=== PATIENT | female | born 1990 | race Caucasian/White ===

== ENCOUNTER 2017-08-16 22:05 | Inpatient (IN) | payer OTHER ==
[2017-08-16] MEDS ORDERED: Penicillin G Potassium IV* 5,000,000 UNITS in NS 0.9% 100 ML* 100 ML IVPB ONE (22:33)
[2017-08-16 23:10] LABS: ABS Basophils 0.1 10^3/ul (0-0.2); ABS Eosinophils 0.1 10^3/ul (0-0.6); ABS Lymphocytes 2.5 10^3/ul (1.0-4.8); ABS Monocytes 0.8 10^3/ul (0-0.8); ABS Neutrophils 10.7 10^3/ul (1.5-7.7); ABS Nucleated RBC 0 10^3/ul; Eosinophil % 0.6 % (0-6); Hematocrit 37 % (35-47); Hemoglobin 12.9 g/dl (12.0-16.0); Lymphocyte % 17.6 % (25-47); Mean Corpuscular HGB Conc 35 g/dl (31-36); Mean Corpuscular Hemoglobin 32 pg (27-31); Mean Corpuscular Volume 92 fL (80-97); Mean Platelet Volume 8 um3 (7.4-10.4); Nucleated Red Blood Cells % 0; Platelet Count 217 10^3/ul (150-450); Red Blood Count 4.03 10^6/ul (4.0-5.4); Red Cell Distribution Width 13 % (10.5-15); White Blood Count 14.2 10^3/ul (3.5-10.8)
--- NOTE | 2017-08-16 23:51 | HP ---
General Information - General Information Maternal Age: 27 Grav: 1 Para: 0 SAB: 0 IEA: 0 Estimated Due Date: 08/14/17 Determined By: LMP Gestational Age in Weeks and Days: 40 Weeks and 2 Days Maternal Blood Type and Rh: A Positive - Results this Serology/RPR Result: Non-Reactive Rubella Result: Immune HBsAg Result: Negative HIV Result: Negative GBS Culture Result: Positive Past Medical History Delivery History: See Records Pertinent Past Medical History: See Records Past Medical History Comment: Hx asthma, atopic dermatitis, migraine Pertinent Past Surgical History: None Pertinent Family History: See Records Family History Comment: Pancreatic and breast cancer, dementia - Antepartal Records Antepartal Records: Reviewed, Uncomplicated Review of Systems Constitutional: Uncomfortable CV Complaint: No Respiratory: Shortness of Breath: No Gastrointestinal: No Nausea/Vomiting - + Nausea and vomiting in labor. Little PO intake today Genitourinary: No Dysuria, No Bleeding, No Leaking Fluid Musculoskeletal: Contractions Neurological: No Headache, No Visual Changes Movement: Normal Exam Allergies/Adverse Reactions: Allergies No Known Allergies Allergy (Verified 08/16/17 23:42) BP 134/98 HR 62 RR 18 T97 Lab Values - Entire Visit: Laboratory Tests 08/16/17 08/16/17 22:56 22:56 WBC 14.2 H RBC 4.03 Hgb 12.9 Hct 37 MCV 92 MCH 32 H MCHC 35 RDW 13 Plt Count 217 MPV 8 Neut % (Auto) 75.1 Lymph % (Auto) 17.6 L [place] % (Auto) 5.7 Eos % (Auto) 0.6 Baso % (Auto) 1.0 Absolute Neuts (auto) 10.7 H Absolute Lymphs (auto) 2.5 Absolute Monos (auto) 0.8 Absolute Eos (auto) 0.1 Absolute Basos (auto) 0.1 Absolute Nucleated RBC 0 Nucleated RBC % 0 Blood Type A Positive - Measurements Height: 5 ft 4 in Weight: 158 lb Weight in lbs: 158 Body Mass Index (BMI): 27.1 Pre- Weight: 122 lb Weight Gained This : 36 lbs and 0 ozs - Exam Abdomen: No Upper Quadrant Pain Breast: Breast Exam Deferred CVA: No CVA Tenderness Extremities: No Edema Heart: Normal Rhythm/Heart Sounds HEENT: No Significant Findings Lungs: Clear Bilaterally Rectal: Rectal Exam Deferred Reflexes: DTR 2+ Thyroid: No Thyromegaly - Cervical Exam 3-4cm/70%/vtx -1 - Abdominal Exam Abdomen Exam: Non-Tender, Fundal Height Consistent with Dates - Membranes Membrane Status: Intact - Ultrasound/Biophysical Profile Ultrasound Status: Not Done EFM Findings - External Monitor Findings Baseline Heart Rate: 130 External Monitor Findings: Accelerations Present, No Pattern of Variable or Late Decelerations, Variability Moderate, Baseline Stable External Monitor Findings Comment: No evidence of metabolic acidemia Contractions: Regular, Moderate, 45-90 Seconds Contraction Frequency: q 2-3 min Assessment/Plan - Reason for Visit Reason for Visit: IUP at 40-3/7 in labor GBS positive Elevated BP of unknown significance - Obstetrical Risk Factors Obstetrical Risk Factors: GBS Positive - Plan Plan: Active Labor, IV Hydration - Plan BP labs. Pt request labor epidural for pain mgmt
[2017-08-17] MEDS ORDERED: OBEPIDURAL* 250 ML EPIDURAL ONE (00:10)
[2017-08-17 00:29] LABS: Urine Appearance Cloudy; Urine Blood 3+ (Negative); Urine Color Yellow; Urine Ketones Negative (Negative); Urine Protein Negative (Negative); Urine Specific Gravity 1.033 (1.010-1.030); Urine Urobilinogen Negative (Negative)
[2017-08-17 00:36] LABS: EGFR Non-African American 122.9 (>60); Uric Acid 3.7 mg/dL (2.3-6.6)
[2017-08-17] MEDS ORDERED: Phenylephrine IV* 40 MCG/ML 10 ML SYRINGE IV PUSH PRN ×2 (00:41)
[2017-08-17] MEDS ORDERED: Sodium Citrate/Citric Acid* 15 ML UDC PO PRN (00:41)
[2017-08-17] MEDS ORDERED: OBEPIDURAL* 250 ML EPIDURAL SCH (01:00)
[2017-08-17] MEDS: Penicillin G Potassium IV* 2,500,000 UNITS in NS 0.9% 100 ML* 100 ML IVPB SCH ×2 (03:10→07:02)
[2017-08-17] MEDS ORDERED: Witch Hazel PAD* JAR TOPICAL PRN (09:47)
[2017-08-17] MEDS ORDERED: Acetaminophen TAB* 325 MG PO PRN (09:47)
[2017-08-17] MEDS ORDERED: Dibucaine 1% 28.35 GM TUBE PR PRN (09:47)
[2017-08-17] MEDS ORDERED: Lidocaine 1% MPF* 2 ML VIAL ONE (10:25)
[2017-08-17] MEDS: Ibuprofen TAB* 600 MG PO PRN ×2 (12:41→19:49)
[2017-08-17] MEDS: Docusate CAP* 100 MG PO SCH ×2 (14:00→19:49)
[2017-08-18] MEDS: Ibuprofen TAB* 600 MG PO PRN ×3 (05:49→19:19)
[2017-08-18 07:08] LABS: Hematocrit 28 % (35-47); Hemoglobin 9.7 g/dl (12.0-16.0); Mean Corpuscular HGB Conc 35 g/dl (31-36); Mean Corpuscular Hemoglobin 33 pg (27-31); Mean Corpuscular Volume 93 fL (80-97); Mean Platelet Volume 8 um3 (7.4-10.4); Platelet Count 152 10^3/ul (150-450); Red Blood Count 2.99 10^6/ul (4.0-5.4); Red Cell Distribution Width 13 % (10.5-15); White Blood Count 12.8 10^3/ul (3.5-10.8)
[2017-08-18] MEDS: Ferrous Gluconate TAB* 324 MG TAB PO SCH ×2 (08:55→19:19)
[2017-08-18] MEDS: Docusate CAP* 100 MG PO SCH ×3 (08:55→19:19)
[2017-08-19] MEDS: Ferrous Gluconate TAB* 324 MG TAB PO SCH (08:52)
[2017-08-19] MEDS: Docusate CAP* 100 MG PO SCH (08:52)
[2017-08-19] MEDS: Ibuprofen TAB* 600 MG PO PRN (08:53)
[2017-08-19 09:38] VITALS: BP 137/79
== END 2017-08-19 13:21 | disposition home or self-care (01) | DRG 775 ==
LOC: MCHOBOUT 22:05 → MCHOB 22:36
PROVIDERS: ADMIT Midwife; ATTEND Midwife
PROC: 10907ZC Drainage of Amniotic Fluid, Therapeutic from Products of Conception, Via Natural or Artificial Opening (ICD-10-PCS; principal; 2017-08-16)
PROC: 10E0XZZ Delivery of Products of Conception, External Approach (ICD-10-PCS; 2017-08-16)
PROC: 0KQM0ZZ Repair Perineum Muscle, Open Approach (ICD-10-PCS; 2017-08-16)
PROC: 4A1HX4Z Monitoring of Products of Conception, Cardiac Electrical Activity, External Approach (ICD-10-PCS; 2017-08-16)
DX: O48.0 Post-term pregnancy (principal); R03.0 Elevated blood-pressure reading, without diagnosis of hypertension; L20.9 Atopic dermatitis, unspecified; O75.89 Other specified complications of labor and delivery; O99.824 Streptococcus B carrier state complicating childbirth; Z37.0 Single live birth; Z3A.40 40 weeks gestation of pregnancy; Z80.3 Family history of malignant neoplasm of breast; Z82.5 Family history of asthma and other chronic lower respiratory diseases; Z81.8 Family history of other mental and behavioral disorders; O90.81 Anemia of the puerperium; O70.1 Second degree perineal laceration during delivery; O76 Abnormality in fetal heart rate and rhythm complicating labor and delivery
CPT/HCPCS: 36415; 80053; 81003; 81015; 84550; 85025; 85027; 86850; 86900; 86901; 87086; A9270-GY; J2540

== ENCOUNTER 2018-09-17 07:03 | Emergency (ER) | payer OTHER ==
[2018-09-17 07:16] VITALS: BP 109/64
--- NOTE | 2018-09-17 07:23 | UC ---
General HPI - HPI Summary HPI Summary: 28 yo female c/o approx 24 hours feeling bad. Subj fever and chills. Temperature high at home, but felt cold. + h/a. + achy all over. Possibly scratchy throat. Minimal cough. No rash. No GI issues, other than mild cramping. LMP irregular. No dysuria / freq / urg. - History of Current Complaint Chief Complaint: UCGeneralIllness Stated Complaint: FLU SYMPTOMS Time Seen by Provider: 09/17/18 07:17 Hx Obtained From: Patient Hx Last Menstrual Period: over 1 year Pain Intensity: 2 - Allergy/Home Medications Allergies/Adverse Reactions: Allergies Allergy/AdvReac Type Severity Reaction Status Date / Time No Known Allergies Allergy Verified 09/17/18 07:11 Home Medications: Home Medications Ibuprofen TAB* [Motrin TAB* 600 MG] 400 mg PO Q6H PRN 09/17/18 [History] PMH/Surg Hx/FS Hx/Imm Hx Previously Healthy: Yes - Surgical History Surgical History: None - Family History Known Family History: Positive: Unknown - Social History Alcohol Use: None Substance Use Type: None Smoking Status (MU): Never Smoked Tobacco - Immunization History Most Recent Influenza Vaccination: 03/2017 Most Recent Pneumonia Vaccination: unknown Review of Systems All Other Systems Reviewed And Are Negative: Yes Constitutional: Positive: Other - see hpi Skin: Positive: Negative Eyes: Positive: Negative ENT: Positive: Other - see hpi Respiratory: Positive: Other - see hpi Cardiovascular: Positive: Other - see hpi Gastrointestinal: Positive: Other - see hpi Genitourinary: Positive: Other - see hpi Neurovascular: Positive: Other - see hpi Musculoskeletal: Positive: Other: - see hpi Neurological: Positive: Other - see hpi Psychological: Positive: Negative Is Patient Immunocompromised?: No Physical Exam Triage Information Reviewed: Yes Appearance: Well-Nourished - sitting up, conversing easily and appropriately Vital Signs: Initial Vital Signs Temp 98.1 F 09/17/18 07:10 Pulse 96 09/17/18 07:10 Resp 18 09/17/18 07:10 BP 109/64 09/17/18 07:10 Pulse Ox 96 09/17/18 07:10 Vital Signs Reviewed: Yes Eye Exam: Normal ENT: Positive: Pharyngeal erythema - mild post ph redness, uvula midline, no sores / exudates, TM dull Neck: Positive: Supple, Nontender, No Lymphadenopathy Respiratory Exam: Normal Respiratory: Positive: Chest non-tender, Lungs clear, Normal breath sounds, No respiratory distress Cardiovascular Exam: Normal Cardiovascular: Positive: RRR, No Murmur, Pulses Normal, Brisk Capillary Refill Abdominal Exam: Normal Abdomen Description: Positive: Nontender - (except subj discomfort as above) Musculoskeletal Exam: Normal Neurological Exam: Normal - grossly nonfocal Psychological Exam: Normal - conversing easily and appropriately Skin Exam: Normal Course/Dx - Course Course Of Treatment: INfluenza a/b - neg urine dip - noted, includ + blood and inc sg. D/t pt, including needed for f/ u. ucg - neg HAs not had hx mono. Will check blood work to include cbc, cmp, monospot (ebv if neg). Reviewed coa / tx plan. Questions as posed answered to the best of my ability. F/u PCP (Abdifatah) early this week. - Diagnoses Provider Diagnosis: Viral syndrome, Dehydration Discharge - Sign-Out/Discharge Documenting (check all that apply): Patient Departure All imaging exams completed and their final reports reviewed: No Studies - Discharge Plan Condition: Stable Disposition: HOME Patient Education Materials: Dehydration (ED), Viral Syndrome (ED) Forms: *Work Release Referrals: No Primary Care Phys,NOPCP [Primary Care Provider] - Additional Instructions: Follow up with your primary care physician, per routine. Please seek medical attention for worse or new problems in the meantime. - Billing Disposition and Condition Condition: STABLE Disposition: Home
[2018-09-17 07:34] LABS: Influenza A Molecular NEGATIVE (Negative); Influenza B Molecular NEGATIVE (Negative)
--- NOTE | 2018-09-19 13:17 | ED ---
Progress - Progress Note Progress Note: UA + for strep B, patient started on Keflex 500mg PO TID x 3 days, follow up with pcp within 1-2 weeks for repeat UA. -Shelley Horton PAC Course/Dx - Diagnoses Provider Diagnoses: Viral syndrome, Dehydration Discharge - Sign-Out/Discharge Documenting (check all that apply): Patient Departure All imaging exams completed and their final reports reviewed: No Studies - Discharge Plan Condition: Stable Disposition: HOME Patient Education Materials: Dehydration (ED), Viral Syndrome (ED) Forms: *Work Release Referrals: No Primary Care Phys,NOPCP [Primary Care Provider] - Additional Instructions: Follow up with your primary care physician, per routine. Please seek medical attention for worse or new problems in the meantime. - Billing Disposition and Condition Condition: STABLE Disposition: Home
== END 2018-09-17 08:25 | disposition home or self-care (01) ==
LOC: UCEAST 07:03
DX: B34.9 Viral infection, unspecified (principal); E86.0 Dehydration; R31.9 Hematuria, unspecified; B95.1 Streptococcus, group B, as the cause of diseases classified elsewhere; Z32.02 Encounter for pregnancy test, result negative
CPT/HCPCS: 81003; 84702; 87077; 87086; 99211; G0463

== ENCOUNTER 2019-09-23 03:40 | Inpatient (IN) | payer OTHER ==
[2019-09-23] MEDS ORDERED: Buffered Lidocaine 1% SYRIN* 1 ML/SYRINGE INTRADERM ONE (03:52)
[2019-09-23] MEDS ORDERED: Lactated Ringers 1000 ML Bag* 1,000 ML IV ONE ×2 (03:52→05:14)
[2019-09-23] MEDS ORDERED: Penicillin G Potassium IV* 5,000,000 UNITS in NS 0.9% 100 ML* 100 ML IVPB ONE (03:52)
--- NOTE | 2019-09-23 03:52 | HP ---
General Information - Reason for Visit , IUP@39+3, here in active labor, SROM - General Information Maternal Age: 27 Grav: 2 Para: 1 SAB: 0 IEA: 0 Estimated Due Date: 08/14/17 Determined By: LMP Gestational Age in Weeks/Days: 39+3 Maternal Blood Type and Rh: A Positive - Results this Serology/RPR Result: Non-Reactive Rubella Result: Immune HBsAg Result: Negative HIV Result: Negative GBS Culture Result: Positive Past Medical History Delivery History: Hx Complicated Vaginal Delivery - G1: 40 wk, labor 11 hrs, weight 7'9, pushed 40 mins, 3rd degree, epidural Past Medical History Comment: Asthma Dermatitis Migraine Kidney stones Pertinent Past Surgical History: None Family History Comment: Mother: DMI PGM: breast cancer PGF: pancreatic cancer MGF: dementia - Antepartal Records Antepartal Records: Reviewed, Complicated by: - GBS+ Review of Systems Constitutional: Uncomfortable CV Complaint: No Respiratory: Shortness of Breath: No Gastrointestinal: No Nausea/Vomiting, Normal Bowel Movement, Nausea Genitourinary: Leaking Fluid Musculoskeletal: Contractions Neurological: No Headache, No Visual Changes Movement: Normal Exam Allergies/Adverse Reactions: Allergies No Known Allergies Allergy (Verified 09/17/18 07:11) temp 97.5, HR 75 BP 120/78, O2 100%, RR 20 - Measurements Height: 5 ft 5 in Weight: 151 lb Body Mass Index (BMI): 25.1 Pre- Weight: 122 lb - Exam Breast: Breast Exam Deferred CVA: No CVA Tenderness Extremities: No Edema Rectal: Rectal Exam Deferred - Abdominal Exam Abdomen Exam: Non-Tender - Ultrasound/Biophysical Profile Ultrasound Status: Not Done Targeted Exam Findings Estimated Weight: 7lb 5oz Cervical Exam: 4cm Effacement: 80% Station: -1 Presenting Part: Vertex Membrane Status: SROM Amniotic Fluid Evaluation: Gross Rupture - clear fluid EFM Findings - External Monitor Findings Baseline Heart Rate: 115 External Monitor Findings: Accelerations Present, No Pattern of Variable or Late Decelerations, Variability Moderate, Baseline Stable External Monitor Findings Comment: no evidence of metabolic acidemia Contractions: Irregular, 45-90 Seconds - 2 mins Assessment/Plan - Assessment @39+3 here in active labor SROM to clear fluid@0145, VSS GBS+, otherwise uncomplicated Regular contractions every 2mins No evidence of metabolic acidemia Desires epidural now - Obstetrical Risk Factors Obstetrical Risk Factors: GBS Positive - Plan Plan: Admit - Anticipate Vaginal Delivery Plan Comment: Admit to L&D Epidural now. Anesthesia aware. Anticipate progression to - Date/Time of Admission Date of Admission: 09/23/19 Time of Admission: 04:00
[2019-09-23] MEDS ORDERED: Lactated Ringers 1000 ML Bag* 1,000 ML IV SCH ×4 (04:00→09:00)
[2019-09-23 04:23] LABS: ABS Basophils 0.1 10^3/ul (0-0.2); ABS Eosinophils 0.1 10^3/ul (0-0.6); ABS Lymphocytes 2.7 10^3/ul (1.0-4.8); ABS Monocytes 0.6 10^3/ul (0-0.8); Eosinophil % 0.6 %; Hematocrit 37 % (35-47); Hemoglobin 12.9 g/dL (12.0-16.0); Lymphocyte % 25.8 %; Mean Corpuscular HGB Conc 35 g/dL (31-36); Mean Corpuscular Hemoglobin 33 pg (27-31); Mean Corpuscular Volume 92 fL (80-97); Mean Platelet Volume 8.1 fL (7.4-10.4); Platelet Count 209 10^3/uL (150-450); Red Blood Count 3.97 10^6 /uL (3.70-4.87); Red Cell Distribution Width 13 % (10-15); White Blood Count 10.4 10^3/uL (3.5-10.8)
[2019-09-23] MEDS ORDERED: OBEPIDURAL* 250 ML EPIDURAL ONE (04:25)
[2019-09-23] MEDS ORDERED: Ondansetron INJ* 2 MG/ML VIAL IV PRN (04:53)
[2019-09-23] MEDS ORDERED: Ondansetron INJ* 2 MG/ML VIAL ONE (04:55)
[2019-09-23] MEDS ORDERED: Lactated Ringers 1000 ML Bag* 500 ML IV PRN ×2 (05:14)
[2019-09-23] MEDS ORDERED: Sodium Citrate/Citric Acid* 15 ML UDC PO PRN (05:14)
[2019-09-23] MEDS ORDERED: Famotidine TAB* 20 MG PO PRN (05:14)
[2019-09-23] MEDS ORDERED: Phenylephrine 40 MCG/ML SYRINGE IV PUSH PRN ×2 (05:14)
[2019-09-23] MEDS ORDERED: OBEPIDURAL* 250 ML EPIDURAL SCH (06:00)
[2019-09-23 06:17] LABS: Urine Benzodiazepine Screen None Detected (None Detect); Urine Opiates Screen None Detected (None Detect)
[2019-09-23] MEDS ORDERED: Calcium Carbonate CHEW TAB* 500 MG (TUMS) PO PRN (07:19)
--- NOTE | 2019-09-23 07:19 | PN ---
Progress Note - Progress Note Date of Service: 09/23/19 Note: S: Pt resting in bed. Very comfortable with CEI infusing. Denies rectal pressure/ urge to push. O: BP: 130/79, HR 68, T 98.4 FHT: 130bpm. Moderate variability. +Accels. Early decels UCs: contraction every 2 minutes VE: 9.5/100/0 A: IUP at 39+3 In active labor No evidence of metabolic acidemia P: Position changes to help encourage pt progress to complete Will start pushing when pt notes rectal pressure, as indicated by FHT, or prn
[2019-09-23] MEDS ORDERED: Penicillin G Potassium IV* 3,000,000 UNITS in NS 0.9% 100 ML* 100 ML IVPB SCH (08:30)
[2019-09-23] MEDS ORDERED: Glycerin ADULT SUPP PR PRN (08:55)
--- NOTE | 2019-09-23 10:17 | PROCNOTE ---
[facility] OB: Delivery Note - Delivery A Date of : 09/23/19 Time of : 08:22 [place] Sex: Male Weight at : 8 lb 12.038 oz Score 1 Minute: 8 Score 5 Minutes: 9 Gestational Age in Weeks and Days at Delivery: 150 Weeks and 0 Days Delivery Method: Spontaneous Vaginal Labor: Spontaneous Did Patient attempt ?: N/A, No Previous Amniotic Fluid: Clear Estimated Blood Loss: 250 Anesthesia/Analgesia: CEI for Labor Anesthesia Comment: Dr. Burgos Delivered By: Linda Munson - Nursery Level of Nursery: Regular/Bedside - Perineum Perineal Injury: 2nd Degree Perineal Injury Comment: repaired under lidocaine infiltration with 3-0 vicryl Perineal Repair: By Delivering Practioner - Events Delivery Events of Note: Supplemental O2 to Mother, Partial Course of Antibiotics - for GBS prophylaxis - Risk for Falls Other Risk for Falls: none - Additional Delivery Notes Additional Delivery Notes: experienced SROM to clear fluid and active labor soon followed. Received CEI per preference with good relief. Progressed to complete and complete, began pushing at 0801 with good maternal effort. Category II FHR during pushing. Slow, controlled delivery of infant head OA at 0822, shoulders and compound left hand followed with McRobert's position and strong maternal effort. Male infant delivered to maternal abdomen, vigorous with spontaneous cry, dried and stimulated. Apgars 8 and 9. Cord doubly clamped and cut by 's father once pulsations ceased, about 3 minutes. Intact placenta delivered via kelly at 0828, fundus firm with massage. Perineum and vagina carefully inspected, repair as above. Mother and infant stable at time of note , initiated. EBL= 250 cc.
[2019-09-23] MEDS: Docusate CAP* 100 MG PO SCH ×3 (10:19→21:10)
[2019-09-23] MEDS: Dibucaine 1% 28.35 GM TUBE PR PRN ×2 (10:19→21:10)
[2019-09-23] MEDS: Witch Hazel PAD* JAR TOPICAL PRN ×2 (10:19→21:10)
[2019-09-23] MEDS ORDERED: Lidocaine 1% INJ* 10 MG/ML 30 ML SDV ONE (11:36)
[2019-09-23] MEDS: Ibuprofen TAB* 600 MG PO SCH ×2 (12:00→17:53)
[2019-09-23] MEDS ORDERED: Simethicone TAB* 80 MG TAB.CHEW PO SCH (12:30)
[2019-09-23] MEDS: Acetaminophen TAB* 325 MG PO PRN (21:10)
[2019-09-24] MEDS: Ibuprofen TAB* 600 MG PO SCH ×3 (00:20→14:42)
[2019-09-24] MEDS: Acetaminophen TAB* 325 MG PO PRN (05:18)
[2019-09-24 06:12] LABS: ABS Eosinophils 0.1 10^3/ul (0-0.6); ABS Lymphocytes 2.6 10^3/ul (1.0-4.8); ABS Monocytes 0.7 10^3/ul (0-0.8); ABS Neutrophils 7.9 10^3/ul (1.5-7.7); Eosinophil % 0.7 %; Hematocrit 32 % (35-47); Hemoglobin 11.1 g/dL (12.0-16.0); Lymphocyte % 22.9 %; Mean Corpuscular HGB Conc 34 g/dL (31-36); Mean Corpuscular Hemoglobin 32 pg (27-31); Mean Corpuscular Volume 92 fL (80-97); Mean Platelet Volume 8.2 fL (7.4-10.4); Nucleated Red Blood Cells % 0.1; Platelet Count 185 10^3/uL (150-450); Red Blood Count 3.51 10^6 /uL (3.70-4.87); Red Cell Distribution Width 13 % (10-15); White Blood Count 11.2 10^3/uL (3.5-10.8)
[2019-09-24] MEDS: Docusate CAP* 100 MG PO SCH ×2 (07:52→14:42)
[2019-09-24 08:00] VITALS: BP 114/70
[2019-09-24] MEDS ORDERED: Ferrous Gluconate TAB* 324 MG TAB PO SCH (09:00)
== END 2019-09-24 17:22 | disposition home or self-care (01) | DRG 807 ==
LOC: MCHOBOUT 03:40 → MCHOB 03:44
PROVIDERS: ADMIT Advanced Practice Midwife; ATTEND Midwife
PROC: 10E0XZZ Delivery of Products of Conception, External Approach (ICD-10-PCS; principal; 2019-09-23)
PROC: 0KQM0ZZ Repair Perineum Muscle, Open Approach (ICD-10-PCS; 2019-09-23)
DX: O99.824 Streptococcus B carrier state complicating childbirth (principal); Z37.0 Single live birth; O70.1 Second degree perineal laceration during delivery; O99.52 Diseases of the respiratory system complicating childbirth; O76 Abnormality in fetal heart rate and rhythm complicating labor and delivery; O32.6XX0 Maternal care for compound presentation, not applicable or unspecified; J45.909 Unspecified asthma, uncomplicated; Z3A.39 39 weeks gestation of pregnancy
CPT/HCPCS: 36415; 80307; 85025; 86850; 86900; 86901; A9270-GY; G0480; J2405; J2540